=== PATIENT | female | born 1995 | race Caucasian/White ===

== ENCOUNTER 2019-10-25 15:08 | Emergency (ER) | payer OTHER ==
[~2019-10-25] VITALS: Wt 68.9 kg
[~2019-10-25 15:08] MED LIST: BACTRIM DS 8001 TA1 PO; BACTROBAN CREAM15 GM PO; BIRTH CONTROL1 EAC1 PO; COLACE100 MG PO; FEROSUL325 MG PO; FLEXERIL5 MG PO; FLINTSTONES W/I1 CTB PO; IBUPROFEN 30 M800 MG PO; IBUPROFEN800 MG PO; IRON TABLETS325 MG PO; LEVAQUIN750 MG PO; NKHM; PREDNISONE20 MG PO; PRENATAL1 TA1 PO; TRAMADOL HCL50 MG PO; VICODIN 5/500 505 MG PO; ZITHROMAX Z PA250 MG PO
[2019-10-25] MEDS ORDERED: TOBRAMYCIN 5 ML5 M1 OPH (15:54)
== END 2019-10-25 16:28 | disposition home or self-care (01) ==
LOC: ED 15:08
DX: T15.11XA Foreign body in conjunctival sac, right eye, initial encounter (principal); Z79.899 Other long term (current) drug therapy; X58.XXXA Exposure to other specified factors, initial encounter; Y93.89 Activity, other specified; Y92.89 Other specified places as the place of occurrence of the external cause; Y99.8 Other external cause status

== ENCOUNTER 2021-11-28 15:46 | Emergency (ER) | payer OTHER ==
[~2021-11-28] VITALS: Ht 157.4 cm; Wt 70.3 kg
[~2021-11-28 15:46] MED LIST changes: +TOBRAMYCIN 5 ML5 M1 OPH
== END 2021-11-28 18:45 | disposition home or self-care (01) ==
LOC: ED 15:46
DX: R44.3 Hallucinations, unspecified (principal); E87.6 Hypokalemia; Z79.899 Other long term (current) drug therapy

== ENCOUNTER 2024-04-22 15:42 | Emergency (ER) | payer SELFPAY ==
[~2024-04-22] VITALS: Ht 157.4 cm; Wt 68.0 kg
[2024-04-22] MEDS ORDERED: VIBRAMYCIN100 MG PO (16:36)
== END 2024-04-22 16:41 | disposition home or self-care (01) ==
LOC: ED 15:42
DX: S30.91XA Unspecified superficial injury of lower back and pelvis, initial encounter (principal); L02.31 Cutaneous abscess of buttock; Z88.2 Allergy status to sulfonamides; Z88.8 Allergy status to other drugs, medicaments and biological substances; Z98.890 Other specified postprocedural states; X58.XXXA Exposure to other specified factors, initial encounter; Y93.89 Activity, other specified; Y92.89 Other specified places as the place of occurrence of the external cause; Y99.8 Other external cause status